=== PATIENT | male | born 1960 | race Caucasian/White ===

== ENCOUNTER 2017-02-01 15:11 | Emergency (ER) | payer OTHER ==
[2017-02-01 19:06] LABS: BASOPHIL % 1.1 % (0-2); PLATELET COUNT 154 x10^3mcL (130-400)
[2017-02-01 19:10] LABS: CALCIUM 7.8 mg/dL (8.5-10.1); CHLORIDE SERUM 100 mmol/L (98-107); CREATININE SERUM 0.6 mg/dL (0.7-1.3); GFR1 > 60 mL/min; GLUCOSE SERUM 277 mg/dL (74-106); POTASSIUM SERUM 4.1 mmol/L (3.5-5.1); SODIUM SERUM 134 mmol/L (136-145)
[2017-02-01 19:15] LABS: ALKALINE PHOSPHATASE 67 U/L (46-116); ALT/SGPT 19 U/L (16-63); AST/SGOT 15 U/L (15-37); BILIRUBIN TOTAL 1.69 mg/dL (0.20-1.00)
[2017-02-01 19:29] LABS: ALBUMIN 3.1 g/dL (3.4-5.0); TOTAL PROTEIN, SERUM 5.9 g/dL (6.4-8.2)
[2017-02-01 20:44] VITALS: BP 111/79
== END 2017-02-01 20:44 | disposition home or self-care (01) ==
LOC: ED 15:11
PROVIDERS: Emergency Medicine Emergency Medical Services
DX: E11.65 Type 2 diabetes mellitus with hyperglycemia (principal); F17.210 Nicotine dependence, cigarettes, uncomplicated; Z79.84 Long term (current) use of oral hypoglycemic drugs
CPT/HCPCS: 36415; 83880; 85378; J7030; Q0092